=== PATIENT | female | born 1970 | race Caucasian/White ===

== ENCOUNTER 2017-12-19 03:31 | Emergency (ER) | payer SELFPAY ==
[~2017-12-19] VITALS: Ht 172.7 cm; Wt 86.0 kg
[2017-12-19] MEDS ORDERED: ALBUTEROL (0.083%) 2.5MG/3ML NEB HHN STA ×2 (03:45)
[2017-12-19] MEDS ORDERED: IPRATROPIUM BROMIDE (0.02%) 0.5MG/2.5ML NEB HHN STA ×2 (03:45)
[2017-12-19] MEDS ORDERED: PREDNISONE 20MG TABLET PO STA (03:45)
[2017-12-19] MEDS ORDERED: MAGNESIUM 2 G PREMIX 50 ML IV ONE (03:45)
[2017-12-19] MEDS ORDERED: SODIUM CHLORIDE 0.9% 1,000 ML IV ONE (03:45)
[2017-12-19] MEDS ORDERED: METHYLPREDNISOLONE SOD SUCC 125 MG/2 ML VIAL IV STA (03:45)
[2017-12-19] MEDS ORDERED: ASPIRIN 81MG TABLET PO ONE (03:45)
[2017-12-19 04:19] LABS: BASOPHILS % 0.4 % (0.0-2.0); EOSINOPHILS % 2.8 % (0.0-5.0); HEMATOCRIT. 44.8 % (36.0-48.0); HEMOGLOBIN. 14.8 g/dL (12.0-16.0); LYMPHOCYTES % 32.6 % (20.0-50.0); MEAN CORPUSCULAR HEMOGLOBIN 30.1 pg (28.0-32.0); MEAN CORPUSCULAR VOLUME 91.3 fL (81.0-99.0); MEAN PLATELET VOLUME 9.3 fl (7.4-10.4); MONOCYTES % 7.4 % (2.0-8.0); NEUTROPHILS % 56.8 % (40.0-76.0); PLATELET 269 x1000/uL (130-400); RED CELL DISTRIBUTION WIDTH 15.3 % (11.6-14.6)
[2017-12-19 04:29] LABS: D-DIMER 0.39 mg/L FEU (<0.50)
[2017-12-19 04:39] LABS: HCG SCREEN NEGATIVE
[2017-12-19 05:12] LABS: BG CARBOXYHEMOGLOBIN 0.6 % (0.5-1.5); BG DEOXYHEMOGLOBIN 3.8 % (0.0-5.0); BG FRACTION INSPIRED OXYGEN 60; BG HCO3 ACT 21.2 mmol/L (22.0-26.0); BG METHEMOGLOBIN 0.2 % (0.0-1.5); BG OXYGEN SATURATION 96.2 % (92.0-98.5); BG OXYHEMOGLOBIN 95.4 % (94.0-97.0); BG PCO2 39.1 mmHg (35.0-45.0); BG PH 7.351 (7.350-7.450); BG PO2 88.8 mmHg (75.0-100.0); BG SAMPLE SITE LEFT RADIAL; BG TOTAL HEMOGLOBIN 14.5 g/dL (12.0-18.0)
[2017-12-19 05:49] LABS: CHLORIDE 104 mEq/L (98-107)
[2017-12-19 05:54] LABS: ETHANOL BLOOD < 10 mg/dL
[2017-12-19 06:15] VITALS: BP 135/75
== END 2017-12-19 06:40 | disposition home or self-care (01) ==
LOC: ER 03:31 → CANBEDREQ 07:06
DX: J45.901 Unspecified asthma with (acute) exacerbation (principal); Z79.82 Long term (current) use of aspirin
CPT/HCPCS: 36415; 36600; 71045; 80053; 82375; 82805; 83605; 83690; 83880; 84484; 84703; 85025; 85379; 85610; 87040; 96365; 96375; 99285; G0482; J2930; J3475; J7030; J7512; J7611

== ENCOUNTER 2017-12-29 21:14 | Inpatient (IN) | payer SELFPAY ==
[~2017-12-29] VITALS: Ht 157.5 cm; Wt 83.9 kg
[2017-12-29] MEDS ORDERED: METHYLPREDNISOLONE SOD SUCC 125 MG/2 ML VIAL IV STA (21:34)
[2017-12-29] MEDS ORDERED: ALBUTEROL (0.083%) 2.5MG/3ML NEB HHN STA (21:34)
[2017-12-29] MEDS ORDERED: ASPIRIN 81MG TABLET PO STA (21:34)
[2017-12-29] MEDS ORDERED: IPRATROPIUM BROMIDE (0.02%) 0.5MG/2.5ML NEB HHN STA (21:34)
[2017-12-29] MEDS ORDERED: MAGNESIUM 2 G PREMIX 50 ML IV ONE (21:45)
[2017-12-29] MEDS ORDERED: EPINEPHRINE 1:1000 1 MG/ML AMP INJ ONE (21:45)
[2017-12-29 22:03] LABS: BASOPHILS % 0.4 % (0.0-2.0); EOSINOPHILS % 1.2 % (0.0-5.0); HEMATOCRIT. 40.9 % (36.0-48.0); HEMOGLOBIN. 13.6 g/dL (12.0-16.0); LYMPHOCYTES % 36.9 % (20.0-50.0); MEAN CORPUSCULAR HEMOGLOBIN 30.1 pg (28.0-32.0); MEAN CORPUSCULAR VOLUME 90.4 fL (81.0-99.0); MEAN PLATELET VOLUME 8.9 fl (7.4-10.4); MONOCYTES % 5.9 % (2.0-8.0); NEUTROPHILS % 55.6 % (40.0-76.0); PLATELET 268 x1000/uL (130-400); RED BLOOD CELL COUNT 4.52 mill/uL (4.2-5.4); RED CELL DISTRIBUTION WIDTH 15.2 % (11.6-14.6)
[2017-12-29 22:10] LABS: CHLORIDE 105 mEq/L (98-107)
[2017-12-29 22:13] LABS: PARTIAL THROMBOPLASTIN TIME 25.8 sec (23.4-31.0)
[2017-12-29 22:17] LABS: HCG SCREEN NEGATIVE
[2017-12-29 22:30] LABS: BG BASE EXCESS -2.2 mmol/L (-2.0-2.0); BG CARBOXYHEMOGLOBIN 0.6 % (0.5-1.5); BG FRACTION INSPIRED OXYGEN 21; BG METHEMOGLOBIN 0.2 % (0.0-1.5); BG OXYHEMOGLOBIN 94.2 % (94.0-97.0); BG PH 7.403 (7.350-7.450); BG PO2 77.3 mmHg (75.0-100.0); BG SAMPLE SITE RIGHT BRACHIAL; BG TOTAL HEMOGLOBIN 13.6 g/dL (12.0-18.0); BG VENT MODE ROOM AIR
[2017-12-30] MEDS ORDERED: GUAIFENESIN 200MG/10ML SUGAR FREE UDC PO PRN (05:00)
[2017-12-30] MEDS ORDERED: CLONIDINE 0.1MG TABLET PO PRN (05:00)
[2017-12-30] MEDS ORDERED: DOCUSATE SODIUM 100MG CAPSULE PO PRN (05:00)
[2017-12-30] MEDS ORDERED: IPRATROPIUM/ALBUTEROL 0.5-3(2.5)MG/3ML NEB INH PRN (05:00)
[2017-12-30] MEDS ORDERED: ONDANSETRON HCL 4MG/2ML VIAL IV PRN (05:00)
[2017-12-30] MEDS: AMLODIPINE 10MG TABLET PO SCH (09:00)
[2017-12-30] MEDS: ACETAMINOPHEN 325MG TABLET PO PRN ×2 (09:15→14:56)
[2017-12-30 16:00] VITALS: BP 110/62
[2017-12-30 16:09] VITALS: BP 120/65
[2017-12-30] MEDS ORDERED: AMLO10TA80 PO (16:09)
[2017-12-30] MEDS ORDERED: LACT1CAP67 PO (16:09)
[2017-12-30] MEDS ORDERED: ENOXAPARIN 40MG/0.4ML SYR SUBCUT SCH (17:00)
[2017-12-30] MEDS ORDERED: LEVOFLOXACIN 500MG PREMIX 100 ML IV SCH (18:00)
[2017-12-30] MEDS: HYDROCODONE/ACETAMINOPHEN 5/325MG TABLET PO PRN ×2 (18:11→22:27)
[2017-12-30] MEDS: ASPIRIN 81MG EC TABLET PO SCH (18:11)
[2017-12-30] MEDS: METHYLPREDNISOLONE SOD SUCC 125 MG/2 ML VIAL IV SCH (18:12)
[2017-12-30 20:14] VITALS: BP 111/58
[2017-12-30] MEDS: IPRATROPIUM/ALBUTEROL 0.5-3(2.5)MG/3ML NEB INH SCH (21:10)
[2017-12-31 00:03] VITALS: BP 101/65
[2017-12-31] MEDS: METHYLPREDNISOLONE SOD SUCC 125 MG/2 ML VIAL IV SCH ×2 (00:20→05:48)
[2017-12-31] MEDS: IPRATROPIUM/ALBUTEROL 0.5-3(2.5)MG/3ML NEB INH SCH ×2 (01:43→08:21)
[2017-12-31 04:00] VITALS: BP 97/50
[2017-12-31 07:11] LABS: HEMATOCRIT. 38.3 % (36.0-48.0); MEAN CORPUSCULAR VOLUME 91.7 fL (81.0-99.0); MEAN PLATELET VOLUME 9.3 fl (7.4-10.4); PLATELET 243 x1000/uL (130-400); RED BLOOD CELL COUNT 4.18 mill/uL (4.2-5.4); RED CELL DISTRIBUTION WIDTH 15.6 % (11.6-14.6)
[2017-12-31 07:46] LABS: CHLORIDE 106 mEq/L (98-107)
[2017-12-31 08:00] VITALS: BP 103/64
[2017-12-31] MEDS: AMLODIPINE 10MG TABLET PO SCH (09:00)
[2017-12-31] MEDS: ASPIRIN 81MG EC TABLET PO SCH (09:40)
[2017-12-31] MEDS: HYDROCODONE/ACETAMINOPHEN 5/325MG TABLET PO PRN (09:45)
[2017-12-31] MEDS ORDERED: LORATADINE 10MG TABLET PO SCH (09:45)
[2017-12-31 11:23] LABS: PLATELET ESTIMATE NORMAL
[2017-12-31 12:00] VITALS: BP 109/69
[2017-12-31] MEDS ORDERED: BUDESONIDE 0.5MG/2ML NEB HHN SCH (12:00)
[2017-12-31] MEDS ORDERED: MONTELUKAST SODIUM 10MG TABLET PO SCH (17:00)
[2017-12-31] MEDS ORDERED: FAMOTIDINE 20MG TABLET PO SCH (21:00)
== END 2017-12-31 12:40 | disposition home or self-care (01) | DRG 133 ==
LOC: ER 22:47 → 7WST 12-30 00:10 → SUPCPDRO 12-30 04:47 → ENRESERV 12-30 13:22
PROVIDERS: ADMIT Hospitalist; ATTEND Hospitalist
DX: J96.00 Acute respiratory failure, unspecified whether with hypoxia or hypercapnia (principal); J45.902 Unspecified asthma with status asthmaticus; I10 Essential (primary) hypertension; D72.829 Elevated white blood cell count, unspecified; Z79.899 Other long term (current) drug therapy; Z79.1 Long term (current) use of non-steroidal anti-inflammatories (NSAID)
CPT/HCPCS: 36415; 36600; 71045; 80053; 82375; 82805; 84484; 84703; 85025; 85610; 85730; 93005; 93970; 94640; 96365; 96375; 99291; J1650; J1956; J2930; J3475; J3490; J7050; J7611; J7620

== ENCOUNTER 2018-08-07 18:12 | Inpatient (IN) | payer OTHER, MEDICAID ==
[~2018-08-07] VITALS: Ht 157.5 cm; Wt 88.5 kg
[~2018-08-07 18:12] MED LIST: AMLO10TA80 PO; LACT1CAP67 PO
[2018-08-07 22:47] LABS: CLARITY URINE CLEAR (CLEAR); COLOR URINE YELLOW (YELLOW); KETONES URINE NEGATIVE (NEGATIVE); LEUKOCYTE ESTERASE URINE NEGATIVE (NEGATIVE); NITRITE URINE NEGATIVE (NEGATIVE); OCCULT BLOOD URINE NEGATIVE (NEGATIVE); PROTEIN URINE NEGATIVE (NEGATIVE); SPECIFIC GRAVITY URINE 1.021 (1.005-1.030); UROBILINOGEN URINE 0.2 E.U./dL (0.2-1.0)
[2018-08-07 22:48] LABS: BASOPHILS % 0.4 % (0.0-2.0); EOSINOPHILS % 2.1 % (0.0-5.0); LYMPHOCYTES % 32.7 % (20.0-50.0); MEAN CORPUSCULAR HEMOGLOBIN 29.9 pg (28.0-32.0); MEAN CORPUSCULAR VOLUME 89.7 fL (81.0-99.0); MEAN PLATELET VOLUME 9.3 fl (7.4-10.4); MONOCYTES % 8.6 % (2.0-8.0); NEUTROPHILS % 56.2 % (40.0-76.0); PLATELET 241 x1000/uL (130-400); RED BLOOD CELL COUNT 4.35 mill/uL (4.2-5.4); RED CELL DISTRIBUTION WIDTH 14.8 % (11.6-14.6)
[2018-08-07 22:51] LABS: CHLORIDE 105 mEq/L (98-107)
[2018-08-07] MEDS ORDERED: ACETAMINOPHEN 500MG TABLET PO ONE (23:15)
[2018-08-08 01:15] VITALS: BP_SYST 106; BP_SYST 116; BP_DIAS 60
[2018-08-08 04:00] VITALS: BP 102/62
[2018-08-08] MEDS ORDERED: IPRATROPIUM/ALBUTEROL 0.5-3(2.5)MG/3ML NEB HHN PRN (06:15)
[2018-08-08 08:00] VITALS: BP 111/78
[2018-08-08] MEDS ORDERED: ACETAMINOPHEN 325MG TABLET PO PRN (09:30)
[2018-08-08 10:36] VITALS: BP 111/78
== END 2018-08-08 11:08 | disposition home or self-care (01) | DRG 207 ==
LOC: ER 18:47 → EDBEDREQ 23:07 → EDBEDREQTM 23:07 → ENRESERV 23:24 → 8WST 08-08 01:33
PROVIDERS: ADMIT Internal Medicine; ATTEND Internal Medicine
DX: I95.9 Hypotension, unspecified (principal); I10 Essential (primary) hypertension; J45.909 Unspecified asthma, uncomplicated
CPT/HCPCS: 36415; 71045; 83880; 84484; 85379; 93005; 99285

== ENCOUNTER 2018-08-22 14:01 | Emergency (ER) | payer MEDICAID, OTHER ==
[~2018-08-22] VITALS: Ht 157.5 cm; Wt 87.0 kg
[2018-08-22] MEDS ORDERED: MAGNESIUM 2 G PREMIX 50 ML IV STA (16:26)
[2018-08-22] MEDS ORDERED: IPRATROPIUM BROMIDE (0.02%) 0.5MG/2.5ML NEB HHN STA (16:26)
[2018-08-22] MEDS ORDERED: METHYLPREDNISOLONE SOD SUCC 125 MG/2 ML VIAL IV STA (16:26)
[2018-08-22] MEDS ORDERED: ALBUTEROL (0.083%) 2.5MG/3ML NEB HHN STA (16:26)
[2018-08-22] MEDS ORDERED: KETOROLAC 30MG/ML VIAL IV ONE (16:30)
[2018-08-22] MEDS ORDERED: ACETAMINOPHEN WITH CODEINE 300/30MG TABLET PO ONE (18:00)
[2018-08-22] MEDS ORDERED: BENZONATATE 100MG CAPSULE PO ONE (18:00)
[2018-08-22 20:16] VITALS: BP 121/77
== END 2018-08-22 23:40 | disposition home or self-care (01) ==
LOC: ER 21:07
DX: J45.901 Unspecified asthma with (acute) exacerbation (principal); R10.9 Unspecified abdominal pain; I10 Essential (primary) hypertension
CPT/HCPCS: 71045; 94644; 96365; 96375; 99283; J1885; J2930; J3475; J7611

== ENCOUNTER 2019-02-03 12:45 | Emergency (ER) | payer MEDICAID ==
[~2019-02-03] VITALS: Ht 157.5 cm; Wt 90.0 kg
[2019-02-03 13:12] VITALS: BP 94/64
[2019-02-03] MEDS ORDERED: ALBUTEROL (0.083%) 2.5MG/3ML NEB HHN STA (14:28)
[2019-02-03] MEDS ORDERED: PREDNISONE 20MG TABLET PO STA (14:28)
[2019-02-03] MEDS ORDERED: LEVOFLOXACIN 250MG TABLET PO ONE (16:00)
== END 2019-02-03 15:45 | disposition home or self-care (01) ==
LOC: ER 12:45
DX: J18.9 Pneumonia, unspecified organism (principal)
CPT/HCPCS: 71045; 81025; 94640; 99283; J7512; J7611

== ENCOUNTER 2019-06-07 03:06 | Emergency (ER) | payer MEDICAID ==
[~2019-06-07] VITALS: Ht 157.5 cm; Wt 86.0 kg
[2019-06-07] MEDS ORDERED: KETOROLAC 30MG/ML VIAL IV ONE (05:45)
[2019-06-07 05:49] LABS: BASOPHILS % 0.6 % (0.0-2.0); EOSINOPHILS % 2.3 % (0.0-5.0); HEMATOCRIT. 38.8 % (36.0-48.0); MEAN CORPUSCULAR HEMOGLOBIN 30.9 pg (28.0-32.0); MEAN CORPUSCULAR VOLUME 92.4 fL (81.0-99.0); MEAN PLATELET VOLUME 9.9 fl (7.4-10.4); MONOCYTES % 8.3 % (2.0-8.0); NEUTROPHILS % 61.8 % (40.0-76.0); PLATELET 198 x1000/uL (130-400); RED CELL DISTRIBUTION WIDTH 15.4 % (11.6-14.6)
[2019-06-07 05:52] LABS: INR 0.9; PROTHROMBIN TIME 9.5 sec (9.6-11.0)
[2019-06-07 05:53] LABS: CHLORIDE 108 mEq/L (98-107)
[2019-06-07 05:55] LABS: CLARITY URINE CLEAR (CLEAR); COLOR URINE YELLOW (YELLOW); KETONES URINE NEGATIVE (NEGATIVE); LEUKOCYTE ESTERASE URINE NEGATIVE (NEGATIVE); NITRITE URINE NEGATIVE (NEGATIVE); OCCULT BLOOD URINE 1+ (NEGATIVE); PH URINE 6.5 (4.5-8.0); PROTEIN URINE NEGATIVE (NEGATIVE); SPECIFIC GRAVITY URINE 1.013 (1.005-1.030); UROBILINOGEN URINE 0.2 E.U./dL (0.2-1.0)
[2019-06-07 09:31] VITALS: BP 132/80
== END 2019-06-07 09:33 | disposition home or self-care (01) ==
LOC: ER 03:06
DX: K80.20 Calculus of gallbladder without cholecystitis without obstruction (principal); J45.909 Unspecified asthma, uncomplicated
CPT/HCPCS: 36415; 76700; 80053; 81003; 83690; 85025; 85610; 96374; 99284; J1885; Z7610